=== PATIENT | female | born 1930 | race Caucasian/White ===

== ENCOUNTER 2018-11-08 11:01 | Inpatient (IN) ==
[2018-11-08 11:44] LABS: Basophils % 0.5 % (0.0-0.8); Eosinophils # 0.2 10*3/uL (0.0-0.87); Eosinophils % 1.7 % (0.00-10.9); Hematocrit 35.7 VOL% (35.7-47.0); Hemoglobin 11.4 GM/DL (12.0-16.0); Immature Granulocytes % 0.3 %; Immature Granulocytes Absolute 0.03 #; Lymphocytes # 2.1 10*3/uL (1.4-4.0); Lymphocytes % 24.2 % (21.3-54.2); Mean Corpuscular HGB Conc 31.9 GM/DL (32-36); Mean Corpuscular Volume 85.8 FL (87-102); Mean Platelet Volume 11.3 FL (9.6-12.0); Monocytes % 9.4 % (1.7-12.7); Neutrophils % 63.9 % (38.7-73.9); Platelet Count 249 T/CUMM (130-400); Red Blood Count 4.16 MC/CUMM (3.8-5.5); Red Cell Distribution Width 14.6 % (9.3-17.3); White Blood Count 8.8 T/CUMM (4-12)
[2018-11-08 11:56] LABS: INR 0.9; Partial Thromboplastin Time 22.5 SECS (20.8-36.0)
[2018-11-08 12:08] LABS: Alanine Aminotransferase 24 U/L (13-56); Albumin 3.2 G/DL (3.4-5.0); Alkaline Phosphatase 88 U/L (45-117); Aspartate Amino Transferase 39 U/L (0-37); Blood Urea Nitrogen 28 MG/DL (7-18); Calcium 8.6 MG/DL (8.5-10.1); Estimated Glom Filtration Rate 42 ML/MIN; Glucose 82 MG/DL (74-106); Osmolality,Calculated 285.3 MOS/KG (273-304); Total Protein 6.7 G/DL (6.4-8.3)
[2018-11-08 12:29] LABS: Apearance,Urine Slightly Hazy (Clear); Bilirubin,Urine Negative (Negative); Blood, Urine Negative (Negative); Glucose,Urine (UA) Negative (Negative); Ketones,Urine Negative (Negative); Nitrite,Urine Negative (Negative); Protein,Urine 30 MG/DL; Urine Color Yellow (Yellow); Urine Specific Gravity 1.019 (1.001-1.035); Urine Urobilinogen < 2.0 EU/DL (0.2-1.0)
[2018-11-08 13:03] LABS: Barbiturates Screen,Urine Negative (Negative); Benzodiazepines Screen,Urine Negative (Negative); Cannabinoid Screen,Urine Negative (Negative); Opiate Screen,Urine Negative (Negative); Phencyclidine Screen,Urine Negative (Negative)
[2018-11-08] MEDS ORDERED: INFLUENZA VIRUS VACCINE 0.5 ML SYRINGE IM ONE (16:08)
[2018-11-08] MEDS: DONEPEZIL 10 MG TABLET PO SCH (20:50)
[2018-11-08] MEDS: ROSUVASTATIN 20 MG TABLET PO SCH (20:50)
[2018-11-08] MEDS: DOXYCYCLINE HYCLATE 100 MG CAPSULE PO SCH (20:50)
[2018-11-09] MEDS ORDERED: hydrALAZINE 20 MG/1 ML VIAL IV ONE (04:28)
[2018-11-09 04:37] LABS: Basophils % 0.7 % (0.0-0.8); Eosinophils # 0.2 10*3/uL (0.0-0.87); Eosinophils % 3.4 % (0.00-10.9); Hematocrit 36.6 VOL% (35.7-47.0); Hemoglobin 11.4 GM/DL (12.0-16.0); Immature Granulocytes % 0.3 %; Immature Granulocytes Absolute 0.02 #; Lymphocytes # 1.7 10*3/uL (1.4-4.0); Lymphocytes % 28.5 % (21.3-54.2); Mean Corpuscular HGB Conc 31.1 GM/DL (32-36); Mean Corpuscular Volume 85.1 FL (87-102); Mean Platelet Volume 10.1 FL (9.6-12.0); Monocytes % 8.8 % (1.7-12.7); Neutrophils % 58.3 % (38.7-73.9); Platelet Count 210 T/CUMM (130-400); Red Cell Distribution Width 14.4 % (9.3-17.3); White Blood Count 5.9 T/CUMM (4-12)
[2018-11-09 04:54] LABS: Albumin 3.2 G/DL (3.4-5.0); Bilirubin,Total 0.4 MG/DL (0.2-1.0); Calcium 8.9 MG/DL (8.5-10.1); Osmolality,Calculated 286.1 MOS/KG (273-304); Total Protein 6.4 G/DL (6.4-8.3)
[2018-11-09] MEDS: CLOPIDOGREL 75 MG TABLET PO SCH (10:36)
[2018-11-09] MEDS: CALCIUM (CARBONATE)/VITAMIN D 250 MG-125 UNIT TABLET PO SCH (10:36)
[2018-11-09] MEDS: hydrALAZINE 25 MG TABLET PO SCH ×3 (10:36→20:56)
[2018-11-09] MEDS: SERTRALINE 100 MG TABLET PO SCH (10:36)
[2018-11-09] MEDS: DOXYCYCLINE HYCLATE 100 MG CAPSULE PO SCH ×2 (10:37→20:56)
[2018-11-09] MEDS: MULTIVITAMIN (CENTRUM) TABLET PO SCH (10:37)
[2018-11-09] MEDS: PANTOPRAZOLE 40 MG TABLET PO SCH (10:37)
[2018-11-09] MEDS: ASPIRIN EC 81 MG TABLET PO SCH (10:37)
[2018-11-09] MEDS: amLODIPine 5 MG TABLET PO SCH (10:37)
[2018-11-09] MEDS: LORATADINE 10 MG TABLET PO SCH (10:37)
[2018-11-09] MEDS: ACETAMINOPHEN 325 MG TABLET PO PRN ×2 (10:44→21:09)
[2018-11-09] MEDS: DONEPEZIL 10 MG TABLET PO SCH (20:56)
[2018-11-09] MEDS: ROSUVASTATIN 20 MG TABLET PO SCH (20:56)
[2018-11-10] MEDS: ACETAMINOPHEN 325 MG TABLET PO PRN ×2 (06:06→12:43)
[2018-11-10] MEDS: CALCIUM (CARBONATE)/VITAMIN D 250 MG-125 UNIT TABLET PO SCH (08:16)
[2018-11-10] MEDS: hydrALAZINE 25 MG TABLET PO SCH ×2 (08:16→15:09)
[2018-11-10] MEDS: CLOPIDOGREL 75 MG TABLET PO SCH (08:17)
[2018-11-10] MEDS: DOXYCYCLINE HYCLATE 100 MG CAPSULE PO SCH (08:17)
[2018-11-10] MEDS: PANTOPRAZOLE 40 MG TABLET PO SCH (08:17)
[2018-11-10] MEDS: ASPIRIN EC 81 MG TABLET PO SCH (08:17)
[2018-11-10] MEDS: MULTIVITAMIN (CENTRUM) TABLET PO SCH (08:17)
[2018-11-10] MEDS: LORATADINE 10 MG TABLET PO SCH (08:17)
[2018-11-10] MEDS: amLODIPine 5 MG TABLET PO SCH (08:17)
[2018-11-10] MEDS: SERTRALINE 100 MG TABLET PO SCH (08:17)
[2018-11-10] MEDS ORDERED: amLODIPine 5 MG TABLET PO ONE (09:48)
[2018-11-10 17:07] VITALS: BP 183/72
== END 2018-11-10 17:05 | disposition hospice, home (50) | DRG 69 ==
LOC: N.ED 11:01 → N.EDINP 14:13 → N.4E 15:13
PROVIDERS: ADMIT Internal Medicine; ATTEND Internal Medicine

== ENCOUNTER 2019-02-03 19:45 | Inpatient (IN) ==
[2019-02-03 21:08] LABS: Basophils % 0.4 % (0.0-0.8); Eosinophils # 0.2 10*3/uL (0.0-0.87); Eosinophils % 1.8 % (0.00-10.9); Hematocrit 34.9 VOL% (35.7-47.0); Hemoglobin 10.8 GM/DL (12.0-16.0); Immature Granulocytes % 0.3 %; Immature Granulocytes Absolute 0.03 #; Lymphocytes # 1.5 10*3/uL (1.4-4.0); Lymphocytes % 16.2 % (21.3-54.2); Mean Corpuscular HGB Conc 30.9 GM/DL (32-36); Mean Corpuscular Volume 80.6 FL (87-102); Mean Platelet Volume 9.7 FL (9.6-12.0); Monocytes % 10.8 % (1.7-12.7); Neutrophils % 70.5 % (38.7-73.9); Platelet Count 340 T/CUMM (130-400); Red Blood Count 4.33 MC/CUMM (3.8-5.5); Red Cell Distribution Width 17.9 % (9.3-17.3); White Blood Count 9.1 T/CUMM (4-12)
[2019-02-03 21:19] LABS: PT Patient Result 10.4 SECS (9.6-12.2); Partial Thromboplastin Time 29.8 SECS (20.8-36.0)
[2019-02-03 21:27] LABS: Alanine Aminotransferase 39 U/L (13-56); Albumin 2.8 G/DL (3.4-5.0); Alkaline Phosphatase 78 U/L (45-117); Aspartate Amino Transferase 37 U/L (0-37); Bilirubin,Total < 0.39 MG/DL (0.2-1.0); Blood Urea Nitrogen 17 MG/DL (7-18); Calcium 8.6 MG/DL (8.5-10.1); Estimated Glom Filtration Rate 68 ML/MIN; Glucose 112 MG/DL (74-106); Osmolality,Calculated 279.5 MOS/KG (273-304); Total Protein 6.6 G/DL (6.4-8.3)
[2019-02-03] MEDS ORDERED: ONDANSETRON 4 MG/2 ML VIAL IV PRN (23:53)
[2019-02-03] MEDS ORDERED: guaiFENesin/DM ER 600-30 MG TABLET PO PRN (23:53)
[2019-02-03] MEDS ORDERED: ZALEPLON 5 MG CAPSULE PO PRN (23:53)
[2019-02-03] MEDS ORDERED: DOCUSATE SODIUM 100 MG CAPSULE PO PRN (23:53)
[2019-02-04] MEDS ORDERED: FUROSEMIDE 100 MG/10 ML VIAL IV STA (00:09)
[2019-02-04] MEDS ORDERED: hydrALAZINE 20 MG/1 ML VIAL IV PRN (01:02)
[2019-02-04 01:26] LABS: Basophils % 0.5 % (0.0-0.8); Eosinophils # 0.2 10*3/uL (0.0-0.87); Hematocrit 37.8 VOL% (35.7-47.0); Hemoglobin 11.7 GM/DL (12.0-16.0); Immature Granulocytes % 0.4 %; Immature Granulocytes Absolute 0.03 #; Lymphocytes # 1.3 10*3/uL (1.4-4.0); Lymphocytes % 15.6 % (21.3-54.2); Mean Corpuscular Volume 80.3 FL (87-102); Mean Platelet Volume 9.4 FL (9.6-12.0); Monocytes % 10.7 % (1.7-12.7); Neutrophils % 70.8 % (38.7-73.9); Platelet Count 353 T/CUMM (130-400); Red Blood Count 4.71 MC/CUMM (3.8-5.5); Red Cell Distribution Width 17.9 % (9.3-17.3); White Blood Count 8.3 T/CUMM (4-12)
[2019-02-04 01:52] LABS: Bilirubin,Total 0.4 MG/DL (0.2-1.0); Calcium 8.8 MG/DL (8.5-10.1); Osmolality,Calculated 282.3 MOS/KG (273-304)
[2019-02-04] MEDS: cefTRIAXone 1,000 MG in SYRINGE 1 EACH IV SCH (02:08)
[2019-02-04] MEDS: AZITHROMYCIN INJ 500 MG in SODIUM CHLORIDE 0.9% 250 ML IV SCH (02:08)
[2019-02-04] MEDS: ALBUTEROL/IPRATROPIUM 3 ML NEB RESP TX SCH ×4 (03:41→20:00)
[2019-02-04] MEDS: FUROSEMIDE 40 MG/4 ML VIAL IV SCH (09:10)
[2019-02-04] MEDS: PANTOPRAZOLE 40 MG TABLET PO SCH (09:10)
[2019-02-04] MEDS: GABAPENTIN 100 MG CAPSULE PO SCH ×2 (17:32→21:57)
[2019-02-04] MEDS: hydrALAZINE 25 MG TABLET PO SCH ×2 (17:32→21:58)
[2019-02-04] MEDS: DONEPEZIL 10 MG TABLET PO SCH (21:57)
[2019-02-04] MEDS: ROSUVASTATIN 20 MG TABLET PO SCH (21:57)
[2019-02-04] MEDS: FERROUS SULFATE 325 MG TABLET PO SCH (21:58)
[2019-02-05] MEDS: ALBUTEROL/IPRATROPIUM 3 ML NEB RESP TX SCH ×4 (00:27→19:56)
[2019-02-05] MEDS: cefTRIAXone 1,000 MG in SYRINGE 1 EACH IV SCH (01:39)
[2019-02-05] MEDS: AZITHROMYCIN INJ 500 MG in SODIUM CHLORIDE 0.9% 250 ML IV SCH (01:40)
[2019-02-05] MEDS: LEVOTHYROXINE 75 MCG TABLET PO SCH (05:47)
[2019-02-05] MEDS: FUROSEMIDE 40 MG/4 ML VIAL IV SCH ×2 (07:41→09:11)
[2019-02-05] MEDS ORDERED: CLOPIDOGREL 75 MG TABLET PO SCH (09:00)
[2019-02-05] MEDS: FERROUS SULFATE 325 MG TABLET PO SCH ×2 (09:10→21:00)
[2019-02-05] MEDS: ASPIRIN CHEW 81 MG TABLET PO SCH (09:10)
[2019-02-05] MEDS: hydrALAZINE 25 MG TABLET PO SCH (09:10)
[2019-02-05] MEDS: SERTRALINE 100 MG TABLET PO SCH (09:11)
[2019-02-05] MEDS: PANTOPRAZOLE 40 MG TABLET PO SCH (09:11)
[2019-02-05] MEDS: dilTIAZem Drip 125 MG/125 ML PREMIX IV SCH (10:51)
[2019-02-05] MEDS ORDERED: MAGNESIUM SULF RIDER 2 GM in PREMIX 1 EACH IV ONE (12:12)
[2019-02-05] MEDS: DILTIAZEM CD 240 MG CAPSULE PO SCH (12:36)
[2019-02-05] MEDS: ASCORBIC ACID 500 MG TABLET PO SCH ×2 (12:36→21:00)
[2019-02-05] MEDS: SPIRONOLACTONE 50 MG TABLET PO SCH (12:36)
[2019-02-05] MEDS: MAGNESIUM OXIDE 400 MG TABLET PO SCH ×2 (12:36→21:00)
[2019-02-05] MEDS: GABAPENTIN 100 MG CAPSULE PO SCH ×2 (17:09→21:00)
[2019-02-05] MEDS: ROSUVASTATIN 20 MG TABLET PO SCH (21:00)
[2019-02-05] MEDS: DONEPEZIL 10 MG TABLET PO SCH (21:00)
[2019-02-05] MEDS: APIXABAN 2.5 MG TABLET PO SCH (21:00)
[2019-02-06] MEDS: ALBUTEROL/IPRATROPIUM 3 ML NEB RESP TX SCH ×4 (01:27→20:20)
[2019-02-06] MEDS: AZITHROMYCIN INJ 500 MG in SODIUM CHLORIDE 0.9% 250 ML IV SCH (01:44)
[2019-02-06] MEDS: cefTRIAXone 1,000 MG in SYRINGE 1 EACH IV SCH (01:44)
[2019-02-06] MEDS: LEVOTHYROXINE 75 MCG TABLET PO SCH (05:53)
[2019-02-06] MEDS: MAGNESIUM OXIDE 400 MG TABLET PO SCH ×2 (09:51→20:45)
[2019-02-06] MEDS: PANTOPRAZOLE 40 MG TABLET PO SCH (09:51)
[2019-02-06] MEDS: FERROUS SULFATE 325 MG TABLET PO SCH ×2 (09:52→20:44)
[2019-02-06] MEDS: SPIRONOLACTONE 50 MG TABLET PO SCH (09:52)
[2019-02-06] MEDS: ASCORBIC ACID 500 MG TABLET PO SCH ×2 (09:52→20:44)
[2019-02-06] MEDS: SERTRALINE 100 MG TABLET PO SCH (09:53)
[2019-02-06] MEDS: LOSARTAN 50 MG TABLET PO SCH (09:53)
[2019-02-06] MEDS: ASPIRIN CHEW 81 MG TABLET PO SCH (09:53)
[2019-02-06] MEDS: APIXABAN 2.5 MG TABLET PO SCH (09:54)
[2019-02-06 10:00] LABS: Troponin I 0.019 NG/ML (0.00-0.045)
[2019-02-06] MEDS: DILTIAZEM CD 240 MG CAPSULE PO SCH (10:12)
[2019-02-06 11:18] LABS: Calcium 8.6 MG/DL (8.5-10.1); Osmolality,Calculated 286.4 MOS/KG (273-304)
[2019-02-06] MEDS: dilTIAZem Drip 125 MG/125 ML PREMIX IV SCH (11:37)
[2019-02-06 12:22] LABS: Troponin I 0.018 NG/ML (0.00-0.045)
[2019-02-06] MEDS: GABAPENTIN 100 MG CAPSULE PO SCH ×2 (15:19→20:45)
[2019-02-06 16:15] LABS: Troponin I < 0.015 NG/ML (0.00-0.045)
[2019-02-06] MEDS: ACETAMINOPHEN 325 MG TABLET PO PRN (20:44)
[2019-02-06] MEDS: DONEPEZIL 10 MG TABLET PO SCH (20:45)
[2019-02-06] MEDS: ROSUVASTATIN 20 MG TABLET PO SCH (20:45)
[2019-02-07] MEDS: ALBUTEROL/IPRATROPIUM 3 ML NEB RESP TX SCH ×4 (00:58→19:15)
[2019-02-07] MEDS: cefTRIAXone 1,000 MG in SYRINGE 1 EACH IV SCH (01:22)
[2019-02-07] MEDS: AZITHROMYCIN INJ 500 MG in SODIUM CHLORIDE 0.9% 250 ML IV SCH (01:26)
[2019-02-07 04:48] LABS: Basophils % 0.4 % (0.0-0.8); Eosinophils # 0.3 10*3/uL (0.0-0.87); Eosinophils % 2.6 % (0.00-10.9); Hematocrit 33.7 VOL% (35.7-47.0); Immature Granulocytes % 0.3 %; Immature Granulocytes Absolute 0.03 #; Lymphocytes # 1.5 10*3/uL (1.4-4.0); Lymphocytes % 14.8 % (21.3-54.2); Mean Corpuscular HGB Conc 29.7 GM/DL (32-36); Mean Corpuscular Volume 82.4 FL (87-102); Monocytes % 11.3 % (1.7-12.7); Neutrophils % 70.6 % (38.7-73.9); Platelet Count 417 T/CUMM (130-400); Red Blood Count 4.09 MC/CUMM (3.8-5.5); Red Cell Distribution Width 18.5 % (9.3-17.3); White Blood Count 10.3 T/CUMM (4-12)
[2019-02-07 05:23] LABS: Calcium 8.4 MG/DL (8.5-10.1); Osmolality,Calculated 285.3 MOS/KG (273-304); Thyroid Stimulating Hormone 2.68 uIU/ml (0.358-3.74)
[2019-02-07] MEDS: LEVOTHYROXINE 75 MCG TABLET PO SCH (06:06)
[2019-02-07] MEDS: MAGNESIUM OXIDE 400 MG TABLET PO SCH ×2 (08:58→20:23)
[2019-02-07] MEDS: ASPIRIN CHEW 81 MG TABLET PO SCH (08:58)
[2019-02-07] MEDS: SPIRONOLACTONE 50 MG TABLET PO SCH (08:58)
[2019-02-07] MEDS: SERTRALINE 100 MG TABLET PO SCH (08:58)
[2019-02-07] MEDS: FERROUS SULFATE 325 MG TABLET PO SCH ×2 (08:59→20:22)
[2019-02-07] MEDS: DILTIAZEM CD 240 MG CAPSULE PO SCH (08:59)
[2019-02-07] MEDS: PANTOPRAZOLE 40 MG TABLET PO SCH (08:59)
[2019-02-07] MEDS: ASCORBIC ACID 500 MG TABLET PO SCH ×2 (09:00→20:22)
[2019-02-07] MEDS: LOSARTAN 50 MG TABLET PO SCH (09:00)
[2019-02-07] MEDS: dilTIAZem Drip 125 MG/125 ML PREMIX IV SCH (12:21)
[2019-02-07] MEDS: GABAPENTIN 100 MG CAPSULE PO SCH ×2 (16:50→20:23)
[2019-02-07] MEDS: ROSUVASTATIN 20 MG TABLET PO SCH (20:23)
[2019-02-07] MEDS: DONEPEZIL 10 MG TABLET PO SCH (20:23)
[2019-02-08] MEDS: cefTRIAXone 1,000 MG in SYRINGE 1 EACH IV SCH (00:40)
[2019-02-08] MEDS: ALBUTEROL/IPRATROPIUM 3 ML NEB RESP TX SCH ×4 (00:59→19:31)
[2019-02-08] MEDS: LEVOTHYROXINE 75 MCG TABLET PO SCH (05:42)
[2019-02-08 06:34] LABS: Basophils # 0.1 10*3/uL (0.0-0.2); Basophils % 0.5 % (0.0-0.8); Eosinophils # 0.3 10*3/uL (0.0-0.87); Eosinophils % 2.8 % (0.00-10.9); Hematocrit 37.8 VOL% (35.7-47.0); Hemoglobin 11.4 GM/DL (12.0-16.0); Immature Granulocytes % 0.4 %; Immature Granulocytes Absolute 0.04 #; Lymphocytes # 1.3 10*3/uL (1.4-4.0); Lymphocytes % 11.9 % (21.3-54.2); Mean Corpuscular HGB Conc 30.2 GM/DL (32-36); Mean Corpuscular Volume 81.3 FL (87-102); Mean Platelet Volume 9.6 FL (9.6-12.0); Monocytes % 9.4 % (1.7-12.7); Platelet Count 483 T/CUMM (130-400); Red Blood Count 4.65 MC/CUMM (3.8-5.5); Red Cell Distribution Width 18.6 % (9.3-17.3); White Blood Count 10.6 T/CUMM (4-12)
[2019-02-08 07:04] LABS: % Iron Saturation 7.4 % (18-50); Ferritin 92.1 ng/ml (8-252)
[2019-02-08] MEDS: DILTIAZEM CD 240 MG CAPSULE PO SCH (09:38)
[2019-02-08] MEDS: LOSARTAN 50 MG TABLET PO SCH (09:38)
[2019-02-08] MEDS: MAGNESIUM OXIDE 400 MG TABLET PO SCH ×2 (09:38→21:00)
[2019-02-08] MEDS: ASPIRIN CHEW 81 MG TABLET PO SCH (09:38)
[2019-02-08] MEDS: ASCORBIC ACID 500 MG TABLET PO SCH ×2 (09:38→21:00)
[2019-02-08] MEDS: FERROUS SULFATE 325 MG TABLET PO SCH ×2 (09:39→21:00)
[2019-02-08] MEDS: SERTRALINE 100 MG TABLET PO SCH (09:39)
[2019-02-08] MEDS: SPIRONOLACTONE 50 MG TABLET PO SCH (09:39)
[2019-02-08] MEDS: PANTOPRAZOLE 40 MG TABLET PO SCH (09:39)
[2019-02-08] MEDS ORDERED: dilTIAZem Drip 125 MG/125 ML PREMIX IV SCH (12:40)
[2019-02-08] MEDS ORDERED: FUROSEMIDE 40 MG/4 ML VIAL IV ONE (13:47)
[2019-02-08] MEDS: METOPROLOL SUCCINATE XL 50 MG TABLET PO SCH (14:45)
[2019-02-08] MEDS: GABAPENTIN 100 MG CAPSULE PO SCH ×2 (15:48→21:00)
[2019-02-08] MEDS: ROSUVASTATIN 20 MG TABLET PO SCH (21:00)
[2019-02-08] MEDS: DONEPEZIL 10 MG TABLET PO SCH (21:00)
[2019-02-09] MEDS: ALBUTEROL/IPRATROPIUM 3 ML NEB RESP TX SCH ×4 (00:28→19:01)
[2019-02-09 03:18] LABS: Calcium 8.8 MG/DL (8.5-10.1)
[2019-02-09] MEDS: cefTRIAXone 1,000 MG in SYRINGE 1 EACH IV SCH (03:45)
[2019-02-09] MEDS: LEVOTHYROXINE 75 MCG TABLET PO SCH (06:32)
[2019-02-09] MEDS: SPIRONOLACTONE 50 MG TABLET PO SCH (08:39)
[2019-02-09] MEDS: FUROSEMIDE 40 MG/4 ML VIAL IV SCH (08:39)
[2019-02-09] MEDS: LOSARTAN 50 MG TABLET PO SCH (08:39)
[2019-02-09] MEDS: MAGNESIUM OXIDE 400 MG TABLET PO SCH ×2 (08:39→21:47)
[2019-02-09] MEDS: ASCORBIC ACID 500 MG TABLET PO SCH ×2 (08:40→21:47)
[2019-02-09] MEDS: METOPROLOL SUCCINATE XL 50 MG TABLET PO SCH (08:40)
[2019-02-09] MEDS: PANTOPRAZOLE 40 MG TABLET PO SCH (08:40)
[2019-02-09] MEDS: FERROUS SULFATE 325 MG TABLET PO SCH ×2 (08:40→21:47)
[2019-02-09] MEDS: ASPIRIN CHEW 81 MG TABLET PO SCH (08:40)
[2019-02-09] MEDS: SERTRALINE 100 MG TABLET PO SCH (08:40)
[2019-02-09] MEDS: DILTIAZEM CD 240 MG CAPSULE PO SCH (08:44)
[2019-02-09] MEDS: GABAPENTIN 100 MG CAPSULE PO SCH ×2 (15:25→21:47)
[2019-02-09] MEDS: DONEPEZIL 10 MG TABLET PO SCH (21:46)
[2019-02-09] MEDS: ROSUVASTATIN 20 MG TABLET PO SCH (21:47)
[2019-02-10] MEDS: ALBUTEROL/IPRATROPIUM 3 ML NEB RESP TX SCH ×4 (00:35→20:19)
[2019-02-10] MEDS: cefTRIAXone 1,000 MG in SYRINGE 1 EACH IV SCH (02:44)
[2019-02-10 04:47] LABS: Basophils # 0.1 10*3/uL (0.0-0.2); Basophils % 0.5 % (0.0-0.8); Eosinophils # 0.3 10*3/uL (0.0-0.87); Hematocrit 32.9 VOL% (35.7-47.0); Hemoglobin 10.2 GM/DL (12.0-16.0); Immature Granulocytes % 0.3 %; Immature Granulocytes Absolute 0.03 #; Lymphocytes # 1.8 10*3/uL (1.4-4.0); Lymphocytes % 18.7 % (21.3-54.2); Mean Corpuscular Volume 78.5 FL (87-102); Mean Platelet Volume 10.1 FL (9.6-12.0); Monocytes % 11.1 % (1.7-12.7); Neutrophils % 66.4 % (38.7-73.9); Platelet Count 443 T/CUMM (130-400); Red Blood Count 4.19 MC/CUMM (3.8-5.5); Red Cell Distribution Width 18.5 % (9.3-17.3); White Blood Count 9.4 T/CUMM (4-12)
[2019-02-10 05:23] LABS: Calcium 8.9 MG/DL (8.5-10.1); Osmolality,Calculated 285.4 MOS/KG (273-304)
[2019-02-10] MEDS: LEVOTHYROXINE 75 MCG TABLET PO SCH (06:05)
[2019-02-10 07:46] LABS: Albumin 2.4 G/DL (3.4-5.0); Total Protein 5.5 G/DL (6.4-8.3)
[2019-02-10] MEDS ORDERED: diphenhydrAMINE 2% CREAM 28 GM TUBE TOP PRN (09:32)
[2019-02-10 12:03] LABS: Total Protein,Body Fluid 3.8 G/DL
[2019-02-10] MEDS: PANTOPRAZOLE 40 MG TABLET PO SCH (12:46)
[2019-02-10] MEDS: MAGNESIUM OXIDE 400 MG TABLET PO SCH ×2 (12:46→21:40)
[2019-02-10] MEDS: FERROUS SULFATE 325 MG TABLET PO SCH ×2 (12:46→21:39)
[2019-02-10] MEDS: LOSARTAN 50 MG TABLET PO SCH (12:46)
[2019-02-10] MEDS: SPIRONOLACTONE 50 MG TABLET PO SCH (12:46)
[2019-02-10] MEDS: ASCORBIC ACID 500 MG TABLET PO SCH ×2 (12:46→21:39)
[2019-02-10] MEDS: METOPROLOL SUCCINATE XL 50 MG TABLET PO SCH (12:46)
[2019-02-10] MEDS: DILTIAZEM CD 240 MG CAPSULE PO SCH (12:46)
[2019-02-10] MEDS: ASPIRIN CHEW 81 MG TABLET PO SCH (12:46)
[2019-02-10] MEDS: FUROSEMIDE 40 MG/4 ML VIAL IV SCH (12:47)
[2019-02-10] MEDS: SERTRALINE 100 MG TABLET PO SCH (12:47)
[2019-02-10 13:05] LABS: Lymphocytes,Pleural Fluid 55 %; Monocytes,Pleural Fluid 5 %; Neutrophils,Pleural Fluid 40 %; RBC,Pleural Fluid 4809 T/CUMM
[2019-02-10] MEDS: GABAPENTIN 100 MG CAPSULE PO SCH ×2 (16:27→21:39)
[2019-02-10] MEDS: ROSUVASTATIN 20 MG TABLET PO SCH (21:39)
[2019-02-10] MEDS: DONEPEZIL 10 MG TABLET PO SCH (21:40)
[2019-02-11] MEDS: ALBUTEROL/IPRATROPIUM 3 ML NEB RESP TX SCH ×4 (01:17→21:42)
[2019-02-11] MEDS: cefTRIAXone 1,000 MG in SYRINGE 1 EACH IV SCH (02:30)
[2019-02-11] MEDS: LEVOTHYROXINE 75 MCG TABLET PO SCH (06:17)
[2019-02-11 06:38] LABS: Basophils % 0.5 % (0.0-0.8); Eosinophils # 0.3 10*3/uL (0.0-0.87); Eosinophils % 3.3 % (0.00-10.9); Hemoglobin 9.7 GM/DL (12.0-16.0); Immature Granulocytes % 0.4 %; Immature Granulocytes Absolute 0.03 #; Lymphocytes # 1.6 10*3/uL (1.4-4.0); Lymphocytes % 18.5 % (21.3-54.2); Mean Corpuscular HGB Conc 30.3 GM/DL (32-36); Mean Corpuscular Volume 79.8 FL (87-102); Monocytes % 10.8 % (1.7-12.7); Neutrophils % 66.5 % (38.7-73.9); Platelet Count 472 T/CUMM (130-400); Red Blood Count 4.01 MC/CUMM (3.8-5.5); Red Cell Distribution Width 18.8 % (9.3-17.3); White Blood Count 8.6 T/CUMM (4-12)
[2019-02-11 07:13] LABS: Calcium 8.4 MG/DL (8.5-10.1); Osmolality,Calculated 279.7 MOS/KG (273-304)
[2019-02-11] MEDS: SPIRONOLACTONE 50 MG TABLET PO SCH (08:12)
[2019-02-11] MEDS: DILTIAZEM CD 240 MG CAPSULE PO SCH (08:12)
[2019-02-11] MEDS: ASPIRIN CHEW 81 MG TABLET PO SCH (08:13)
[2019-02-11] MEDS: SERTRALINE 100 MG TABLET PO SCH (08:13)
[2019-02-11] MEDS: LOSARTAN 50 MG TABLET PO SCH (08:13)
[2019-02-11] MEDS: FERROUS SULFATE 325 MG TABLET PO SCH ×2 (08:13→21:09)
[2019-02-11] MEDS: ASCORBIC ACID 500 MG TABLET PO SCH ×2 (08:13→21:09)
[2019-02-11] MEDS: PANTOPRAZOLE 40 MG TABLET PO SCH (08:13)
[2019-02-11] MEDS: MAGNESIUM OXIDE 400 MG TABLET PO SCH ×2 (08:14→21:09)
[2019-02-11] MEDS: METOPROLOL SUCCINATE XL 50 MG TABLET PO SCH (08:14)
[2019-02-11] MEDS ORDERED: ALBUTEROL 2.5 MG/3 ML NEB RESP TX PRN (10:36)
[2019-02-11] MEDS: GABAPENTIN 100 MG CAPSULE PO SCH ×2 (16:44→21:09)
[2019-02-11] MEDS: PIPERACILLIN/TAZOBACTAM 3,375 MG in SODIUM CHLORIDE 0.9% 100 ML IV SCH (17:07)
[2019-02-11] MEDS: ROSUVASTATIN 20 MG TABLET PO SCH (21:09)
[2019-02-11] MEDS: DONEPEZIL 10 MG TABLET PO SCH (21:09)
[2019-02-11] MEDS: APIXABAN 2.5 MG TABLET PO SCH (21:09)
[2019-02-11] MEDS: AZITHROMYCIN INJ 500 MG in SODIUM CHLORIDE 0.9% 250 ML IV SCH (21:11)
[2019-02-11] MEDS ORDERED: VANCOMYCIN INJ 1,000 MG in SODIUM CHLORIDE 0.9% 250 ML IV SCH (22:00)
[2019-02-12] MEDS: ALBUTEROL/IPRATROPIUM 3 ML NEB RESP TX SCH ×4 (00:35→19:45)
[2019-02-12] MEDS: ACETYLCYSTEINE 20% 800 MG/4 ML VIAL RESP TX SCH ×3 (00:35→13:05)
[2019-02-12] MEDS: PIPERACILLIN/TAZOBACTAM 3,375 MG in SODIUM CHLORIDE 0.9% 100 ML IV SCH ×3 (01:43→16:11)
[2019-02-12] MEDS: LEVOTHYROXINE 75 MCG TABLET PO SCH (06:16)
[2019-02-12] MEDS: DILTIAZEM CD 240 MG CAPSULE PO SCH (09:17)
[2019-02-12] MEDS: SPIRONOLACTONE 50 MG TABLET PO SCH (09:17)
[2019-02-12] MEDS: MAGNESIUM OXIDE 400 MG TABLET PO SCH ×2 (09:17→21:45)
[2019-02-12] MEDS: METOPROLOL SUCCINATE XL 50 MG TABLET PO SCH (09:17)
[2019-02-12] MEDS: SERTRALINE 100 MG TABLET PO SCH (09:18)
[2019-02-12] MEDS: APIXABAN 2.5 MG TABLET PO SCH ×2 (09:18→21:45)
[2019-02-12] MEDS: ASPIRIN CHEW 81 MG TABLET PO SCH (09:18)
[2019-02-12] MEDS: PANTOPRAZOLE 40 MG TABLET PO SCH (09:18)
[2019-02-12] MEDS: FERROUS SULFATE 325 MG TABLET PO SCH ×2 (09:18→21:45)
[2019-02-12] MEDS: LOSARTAN 50 MG TABLET PO SCH (09:18)
[2019-02-12] MEDS: ASCORBIC ACID 500 MG TABLET PO SCH ×2 (09:18→21:45)
[2019-02-12] MEDS: GABAPENTIN 100 MG CAPSULE PO SCH ×2 (16:08→21:46)
[2019-02-12] MEDS: ACETAMINOPHEN 325 MG TABLET PO PRN (21:45)
[2019-02-12] MEDS: ROSUVASTATIN 20 MG TABLET PO SCH (21:45)
[2019-02-12] MEDS: DONEPEZIL 10 MG TABLET PO SCH (21:45)
[2019-02-12] MEDS: AZITHROMYCIN INJ 500 MG in SODIUM CHLORIDE 0.9% 250 ML IV SCH (21:46)
[2019-02-13] MEDS: ALBUTEROL/IPRATROPIUM 3 ML NEB RESP TX SCH ×4 (00:50→18:44)
[2019-02-13] MEDS: ACETYLCYSTEINE 20% 800 MG/4 ML VIAL RESP TX SCH ×4 (00:50→18:44)
[2019-02-13] MEDS: PIPERACILLIN/TAZOBACTAM 3,375 MG in SODIUM CHLORIDE 0.9% 100 ML IV SCH ×3 (01:59→16:58)
[2019-02-13] MEDS: LEVOTHYROXINE 75 MCG TABLET PO SCH (06:43)
[2019-02-13] MEDS: MAGNESIUM OXIDE 400 MG TABLET PO SCH ×2 (08:22→20:12)
[2019-02-13] MEDS: SERTRALINE 100 MG TABLET PO SCH (08:22)
[2019-02-13] MEDS: LOSARTAN 50 MG TABLET PO SCH (08:22)
[2019-02-13] MEDS: APIXABAN 2.5 MG TABLET PO SCH ×2 (08:22→20:12)
[2019-02-13] MEDS: SPIRONOLACTONE 50 MG TABLET PO SCH (08:22)
[2019-02-13] MEDS: ASCORBIC ACID 500 MG TABLET PO SCH ×2 (08:22→20:11)
[2019-02-13] MEDS: PANTOPRAZOLE 40 MG TABLET PO SCH (08:22)
[2019-02-13] MEDS: METOPROLOL SUCCINATE XL 25 MG TABLET PO SCH (08:23)
[2019-02-13] MEDS: ASPIRIN CHEW 81 MG TABLET PO SCH (08:23)
[2019-02-13] MEDS: FERROUS SULFATE 325 MG TABLET PO SCH ×2 (08:23→20:10)
[2019-02-13] MEDS: DILTIAZEM CD 240 MG CAPSULE PO SCH (08:23)
[2019-02-13] MEDS ORDERED: METOPROLOL SUCCINATE XL 25 MG TABLET PO SCH (09:00)
[2019-02-13] MEDS: GABAPENTIN 100 MG CAPSULE PO SCH ×2 (16:58→20:10)
[2019-02-13] MEDS: DONEPEZIL 10 MG TABLET PO SCH (20:10)
[2019-02-13] MEDS: ACETAMINOPHEN 325 MG TABLET PO PRN (20:10)
[2019-02-13] MEDS: ROSUVASTATIN 20 MG TABLET PO SCH (20:10)
[2019-02-13] MEDS: AZITHROMYCIN INJ 500 MG in SODIUM CHLORIDE 0.9% 250 ML IV SCH (20:12)
[2019-02-14] MEDS: ALBUTEROL/IPRATROPIUM 3 ML NEB RESP TX SCH ×4 (01:10→18:53)
[2019-02-14] MEDS: PIPERACILLIN/TAZOBACTAM 3,375 MG in SODIUM CHLORIDE 0.9% 100 ML IV SCH ×3 (02:00→17:57)
[2019-02-14 04:46] LABS: Basophils # 0.1 10*3/uL (0.0-0.2); Basophils % 0.6 % (0.0-0.8); Eosinophils # 0.3 10*3/uL (0.0-0.87); Eosinophils % 4.2 % (0.00-10.9); Hematocrit 36.3 VOL% (35.7-47.0); Hemoglobin 10.9 GM/DL (12.0-16.0); Immature Granulocytes % 0.4 %; Immature Granulocytes Absolute 0.03 #; Lymphocytes # 1.7 10*3/uL (1.4-4.0); Lymphocytes % 21.2 % (21.3-54.2); Mean Platelet Volume 9.9 FL (9.6-12.0); Neutrophils % 62.6 % (38.7-73.9); Platelet Count 450 T/CUMM (130-400); Red Blood Count 4.48 MC/CUMM (3.8-5.5); Red Cell Distribution Width 18.6 % (9.3-17.3); White Blood Count 8.1 T/CUMM (4-12)
[2019-02-14 05:13] LABS: Osmolality,Calculated 281.7 MOS/KG (273-304)
[2019-02-14] MEDS: LEVOTHYROXINE 75 MCG TABLET PO SCH (05:33)
[2019-02-14] MEDS: ACETYLCYSTEINE 20% 800 MG/4 ML VIAL RESP TX SCH (07:39)
[2019-02-14] MEDS: LOSARTAN 50 MG TABLET PO SCH (08:51)
[2019-02-14] MEDS: ASPIRIN CHEW 81 MG TABLET PO SCH (08:53)
[2019-02-14] MEDS: FERROUS SULFATE 325 MG TABLET PO SCH ×2 (08:54→21:13)
[2019-02-14] MEDS: MAGNESIUM OXIDE 400 MG TABLET PO SCH ×2 (08:54→21:13)
[2019-02-14] MEDS: PANTOPRAZOLE 40 MG TABLET PO SCH (08:54)
[2019-02-14] MEDS: DILTIAZEM CD 240 MG CAPSULE PO SCH (08:54)
[2019-02-14] MEDS: ASCORBIC ACID 500 MG TABLET PO SCH ×2 (08:54→21:13)
[2019-02-14] MEDS: APIXABAN 2.5 MG TABLET PO SCH ×2 (08:54→21:13)
[2019-02-14] MEDS: METOPROLOL SUCCINATE XL 25 MG TABLET PO SCH (08:54)
[2019-02-14] MEDS: SERTRALINE 100 MG TABLET PO SCH (08:54)
[2019-02-14] MEDS: SPIRONOLACTONE 50 MG TABLET PO SCH (08:55)
[2019-02-14] MEDS: ACETAMINOPHEN 325 MG TABLET PO PRN ×2 (15:01→21:13)
[2019-02-14] MEDS: GABAPENTIN 100 MG CAPSULE PO SCH ×2 (15:01→21:13)
[2019-02-14] MEDS: ROSUVASTATIN 20 MG TABLET PO SCH (21:13)
[2019-02-14] MEDS: DONEPEZIL 10 MG TABLET PO SCH (21:13)
[2019-02-15] MEDS: ALBUTEROL/IPRATROPIUM 3 ML NEB RESP TX SCH ×2 (00:38→07:08)
[2019-02-15] MEDS: PIPERACILLIN/TAZOBACTAM 3,375 MG in SODIUM CHLORIDE 0.9% 100 ML IV SCH ×2 (02:11→09:38)
[2019-02-15] MEDS: LEVOTHYROXINE 75 MCG TABLET PO SCH (05:49)
[2019-02-15 09:18] VITALS: BP 130/65
[2019-02-15] MEDS: MAGNESIUM OXIDE 400 MG TABLET PO SCH (09:37)
[2019-02-15] MEDS: APIXABAN 2.5 MG TABLET PO SCH (09:37)
[2019-02-15] MEDS: SERTRALINE 100 MG TABLET PO SCH (09:37)
[2019-02-15] MEDS: LOSARTAN 50 MG TABLET PO SCH (09:37)
[2019-02-15] MEDS: ASCORBIC ACID 500 MG TABLET PO SCH (09:37)
[2019-02-15] MEDS: SPIRONOLACTONE 50 MG TABLET PO SCH (09:37)
[2019-02-15] MEDS: FERROUS SULFATE 325 MG TABLET PO SCH (09:37)
[2019-02-15] MEDS: DILTIAZEM CD 240 MG CAPSULE PO SCH (09:37)
[2019-02-15] MEDS: PANTOPRAZOLE 40 MG TABLET PO SCH (09:37)
[2019-02-15] MEDS: METOPROLOL SUCCINATE XL 25 MG TABLET PO SCH (09:37)
[2019-02-15] MEDS: ASPIRIN CHEW 81 MG TABLET PO SCH (09:37)
[2019-02-15 18:11] LABS: CDT Result Negative (Negative); CDT Specimen Source STOOL
== END 2019-02-15 11:41 | DRG 177 ==
LOC: EDUNIT# → EDBD → N.ED 19:45 → N.EDINP 02-04 00:01 → SUATTDRO 02-04 00:01 → N.TELEN 02-04 00:24
PROVIDERS: ADMIT Internal Medicine; ATTEND Internal Medicine

== ENCOUNTER 2021-10-08 04:00 | Inpatient (IN) ==
[2021-10-08] MEDS ORDERED: ONDANSETRON 4 MG/2 ML VIAL IV STA (04:55)
[2021-10-08] MEDS ORDERED: MORPHINE 2 MG/1 ML SYRINGE IV STA (04:55)
[2021-10-08] MEDS ORDERED: ONDANSETRON 4 MG/2 ML VIAL ONE ×2 (04:56→08:55)
[2021-10-08] MEDS ORDERED: MORPHINE 2 MG/1 ML SYRINGE ONE (04:56)
[2021-10-08 05:06] LABS: Basophils % 0.3 % (0.0-0.8); Eosinophils # 0.1 10*3/uL (0.0-0.87); Eosinophils % 0.7 % (0.00-10.9); Hematocrit 39.2 VOL% (35.7-47.0); Hemoglobin 12.5 GM/DL (12.0-16.0); Immature Granulocytes % 1.9 %; Immature Granulocytes Absolute 0.31 #; Lymphocytes # 2.2 10*3/uL (1.4-4.0); Lymphocytes % 13.8 % (21.3-54.2); Mean Corpuscular HGB Conc 31.9 GM/DL (32-36); Monocytes # 1.1 10*3/uL (0.11-0.8); Monocytes % 6.6 % (1.7-12.7); Neutrophils % 76.7 % (38.7-73.9); Platelet Count 250 T/CUMM (130-400); Red Blood Count 4.17 MC/CUMM (3.8-5.5); Red Cell Distribution Width 12.6 % (9.3-17.3)
[2021-10-08 05:15] LABS: PT Patient Result 10.7 SECS (10.1-12.1); Partial Thromboplastin Time 25.3 SECS (23.7-32.9)
[2021-10-08 05:24] LABS: Albumin 3.8 G/DL (3.4-5.0); Bilirubin,Total 0.4 MG/DL (0.20-1.00); Calcium 9.9 MG/DL (8.5-10.1); Osmolality,Calculated 300.3 MOS/KG (273-304); Potassium 4.9 MMOL/L (3.5-5.1); Total Protein 7.1 G/DL (6.4-8.2)
[2021-10-08] MEDS ORDERED: ONDANSETRON 4 MG/2 ML VIAL IV PRN (05:24)
[2021-10-08] MEDS ORDERED: ACETAMINOPHEN 325 MG TABLET PO PRN (05:24)
[2021-10-08] MEDS ORDERED: hydrALAZINE 20 MG/1 ML VIAL IV PRN (05:24)
[2021-10-08] MEDS ORDERED: GLUCAGON 1 MG VIAL IM PRN (05:24)
[2021-10-08] MEDS ORDERED: SODIUM CHLORIDE 0.9% 1,000 ML IV STA (05:28)
[2021-10-08] MEDS ORDERED: DEXTROSE 10% 250 ML BAG IV PRN (05:32)
[2021-10-08] MEDS: HYDROmorphone 1 MG/1 ML SYRINGE IV PRN ×3 (05:47→21:10)
[2021-10-08] MEDS ORDERED: LACTATED RINGERS 1,000 ML IV SCH (06:00)
[2021-10-08 06:27] LABS: Amorphous Crystals,Urine Occasional /HPF (Few); Bilirubin,Urine Negative (Negative); Blood, Urine Negative (Negative); Glucose,Urine (UA) Negative (Negative); Hyaline Casts,Urine 1 /LPF (0-3); Ketones,Urine Negative (Negative); Mucus,Urine Occasional /LPF (Occasional); Nitrite,Urine Negative (Negative); Protein,Urine Negative (Negative); Urine Appearance Clear (Clear); Urine Color Yellow (Yellow); Urine Specific Gravity 1.015 (1.001-1.035); Urine Urobilinogen 0.2 eU/dL (<2.0); Urine pH 5.5 (4.5-8.0)
[2021-10-08] MEDS ORDERED: propofoL 200 MG/20 ML VIAL IV ONE (08:55)
[2021-10-08] MEDS ORDERED: ETOMIDATE 40 MG/20 ML VIAL IV ONE (08:55)
[2021-10-08] MEDS ORDERED: fentaNYL 100 MCG/2 ML VIAL ONE (08:55)
[2021-10-08] MEDS ORDERED: LIDOCAINE 2% 5 ML VIAL ONE (08:55)
[2021-10-08] MEDS ORDERED: SEVOFLURANE 1 UNIT/15 MINUTE INH ONE ×2 (08:55→11:15)
[2021-10-08] MEDS ORDERED: ROCURONIUM 50 MG/5 ML VIAL IV ONE (08:55)
[2021-10-08] MEDS ORDERED: ceFAZolin 2,000 MG/50 ML DUPLEX IV ONE (09:00)
[2021-10-08] MEDS ORDERED: ePHEDrine 50 MG/ML VIAL ONE (09:33)
[2021-10-08] MEDS ORDERED: ceFAZolin 1,000 MG VIAL ONE (09:55)
[2021-10-08] MEDS ORDERED: PHENYLEPHRINE 1 MG/10 ML SYRINGE IV ONE (10:10)
[2021-10-08] MEDS ORDERED: PHENYLEPHRINE 10 MG/1 ML VIAL IV ONE (10:10)
[2021-10-08] MEDS ORDERED: SODIUM CHLORIDE 0.9% 100 ML IV ONE (10:10)
[2021-10-08] MEDS ORDERED: GLYCOPYRROLATE 0.4 MG/2 ML VIAL ONE (10:45)
[2021-10-08] MEDS ORDERED: NEOSTIGMINE 10 MG/10 ML VIAL ONE (10:45)
[2021-10-08] MEDS ORDERED: MAGNESIUM HYDROXIDE SUSP 30 ML UDCUP PO PRN (11:00)
[2021-10-08] MEDS ORDERED: BISACODYL 10 MG SUPP RECTAL PRN (11:01)
[2021-10-08] MEDS ORDERED: LACTULOSE 20 GM/30 ML UDCUP PO PRN (11:01)
[2021-10-08] MEDS ORDERED: diphenhydrAMINE CAP 25 MG CAPSULE PO PRN (11:01)
[2021-10-08] MEDS ORDERED: NON-FORMULARY MEDICATION (Menthol [Biofreeze (Menthol)] 4 % Gel) TOP PRN (11:03)
[2021-10-08] MEDS ORDERED: ALBUTEROL 0.63 MG/3 ML NEB RESP TX PRN (11:03)
[2021-10-08] MEDS ORDERED: LOPERAMIDE 2 MG CAPSULE PO PRN (11:03)
[2021-10-08] MEDS ORDERED: SODIUM CHLORIDE 0.9% 1,000 ML IV SCH (14:30)
[2021-10-08] MEDS ORDERED: hydrALAZINE 25 MG TABLET PO SCH (15:00)
[2021-10-08] MEDS: PANTOPRAZOLE 40 MG TABLET PO SCH (16:02)
[2021-10-08] MEDS: ceFAZolin 2,000 MG/50 ML DUPLEX IV SCH ×2 (16:20→23:27)
[2021-10-08] MEDS: FERROUS SULFATE 325 MG TABLET PO SCH (16:20)
[2021-10-08] MEDS: GABAPENTIN 100 MG CAPSULE PO SCH ×2 (16:20→21:07)
[2021-10-08] MEDS: DONEPEZIL 10 MG TABLET PO SCH (21:07)
[2021-10-08] MEDS: DOCUSATE SODIUM 100 MG CAPSULE PO SCH (21:07)
[2021-10-08] MEDS: ROSUVASTATIN 20 MG TABLET PO SCH (21:07)
[2021-10-08] MEDS: APIXABAN 2.5 MG TABLET PO SCH (21:07)
[2021-10-08] MEDS: ASCORBIC ACID 500 MG TABLET PO SCH (21:07)
[2021-10-08] MEDS: OLOPATADINE 0.1% OPH SOLN 5 ML BOTTLE BOTH EYES SCH (21:30)
[2021-10-09 04:59] LABS: Basophils % 0.3 % (0.0-0.8); Eosinophils # 0.1 10*3/uL (0.0-0.87); Eosinophils % 0.3 % (0.00-10.9); Hematocrit 30.4 VOL% (35.7-47.0); Hemoglobin 9.5 GM/DL (12.0-16.0); Immature Granulocytes % 0.5 %; Immature Granulocytes Absolute 0.08 #; Lymphocytes # 0.9 10*3/uL (1.4-4.0); Lymphocytes % 5.6 % (21.3-54.2); Mean Corpuscular HGB Conc 31.3 GM/DL (32-36); Mean Corpuscular Volume 96.8 FL (87-102); Mean Platelet Volume 11.5 FL (9.6-12.0); Monocytes % 12.6 % (1.7-12.7); Neutrophils % 80.7 % (38.7-73.9); Platelet Count 199 T/CUMM (130-400); Red Blood Count 3.14 MC/CUMM (3.8-5.5); Red Cell Distribution Width 13.1 % (9.3-17.3); White Blood Count 15.7 T/CUMM (4-12)
[2021-10-09 05:17] LABS: Calcium 8.2 MG/DL (8.5-10.1); Osmolality,Calculated 291.5 MOS/KG (273-304); Potassium 5.8 MMOL/L (3.5-5.1)
[2021-10-09 05:25] LABS: Band Neutrophils 1 % (0-10); Lymphocytes 7 % (20-55); Platelet Estimate Adequate; Total Cells Counted 100
[2021-10-09] MEDS: LEVOTHYROXINE 75 MCG TABLET PO SCH (05:41)
[2021-10-09] MEDS ORDERED: LOSARTAN 50 MG TABLET PO SCH (09:00)
[2021-10-09] MEDS ORDERED: SPIRONOLACTONE 50 MG TABLET PO SCH (09:00)
[2021-10-09] MEDS ORDERED: amLODIPine 10 MG TABLET PO SCH (09:00)
[2021-10-09] MEDS ORDERED: SODIUM POLYSTYRENE SULFATE 15 GM/60 ML BOTTLE PO STA (09:07)
[2021-10-09] MEDS: MULTIVITAMIN (CENTRUM) TABLET PO SCH (09:19)
[2021-10-09] MEDS: METOPROLOL SUCCINATE XL 25 MG TABLET PO SCH (09:19)
[2021-10-09] MEDS: LORATADINE 10 MG TABLET PO SCH (09:19)
[2021-10-09] MEDS: CALCIUM (CARBONATE)/VITAMIN D 600 MG-400 UNIT TABLET PO SCH (09:19)
[2021-10-09] MEDS: ASCORBIC ACID 500 MG TABLET PO SCH ×2 (09:20→21:52)
[2021-10-09] MEDS: FERROUS SULFATE 325 MG TABLET PO SCH ×2 (09:20→16:05)
[2021-10-09] MEDS: PANTOPRAZOLE 40 MG TABLET PO SCH (09:20)
[2021-10-09] MEDS: ASPIRIN CHEW 81 MG TABLET PO SCH (09:20)
[2021-10-09] MEDS: SERTRALINE 50 MG TABLET PO SCH (09:20)
[2021-10-09] MEDS: DOCUSATE SODIUM 100 MG CAPSULE PO SCH ×2 (09:20→21:53)
[2021-10-09] MEDS: APIXABAN 2.5 MG TABLET PO SCH ×2 (09:20→21:52)
[2021-10-09] MEDS: OLOPATADINE 0.1% OPH SOLN 5 ML BOTTLE BOTH EYES SCH ×2 (09:25→21:58)
[2021-10-09] MEDS: IPRATROPIUM 0.06% NASAL SPRAY 15 ML BOTTLE BOTH NARES SCH (09:25)
[2021-10-09] MEDS: GABAPENTIN 100 MG CAPSULE PO SCH ×2 (16:05→21:53)
[2021-10-09] MEDS: DONEPEZIL 10 MG TABLET PO SCH (21:52)
[2021-10-09] MEDS: ROSUVASTATIN 20 MG TABLET PO SCH (21:53)
[2021-10-10] MEDS: LEVOTHYROXINE 75 MCG TABLET PO SCH (03:20)
[2021-10-10 05:46] LABS: Basophils % 0.2 % (0.0-0.8); Eosinophils # 0.2 10*3/uL (0.0-0.87); Eosinophils % 1.3 % (0.00-10.9); Hematocrit 27.7 VOL% (35.7-47.0); Hemoglobin 8.7 GM/DL (12.0-16.0); Immature Granulocytes % 0.8 %; Lymphocytes # 0.9 10*3/uL (1.4-4.0); Lymphocytes % 7.2 % (21.3-54.2); Mean Corpuscular HGB Conc 31.4 GM/DL (32-36); Mean Corpuscular Volume 96.2 FL (87-102); Mean Platelet Volume 11.7 FL (9.6-12.0); Monocytes # 1.4 10*3/uL (0.11-0.8); Monocytes % 10.7 % (1.7-12.7); Neutrophils % 79.8 % (38.7-73.9); Platelet Count 159 T/CUMM (130-400); Red Blood Count 2.88 MC/CUMM (3.8-5.5); White Blood Count 12.7 T/CUMM (4-12)
[2021-10-10 06:12] LABS: Calcium 8.5 MG/DL (8.5-10.1); Potassium 4.5 MMOL/L (3.5-5.1)
[2021-10-10] MEDS: ASPIRIN CHEW 81 MG TABLET PO SCH (09:05)
[2021-10-10] MEDS: MULTIVITAMIN (CENTRUM) TABLET PO SCH (09:05)
[2021-10-10] MEDS: LORATADINE 10 MG TABLET PO SCH (09:06)
[2021-10-10] MEDS: APIXABAN 2.5 MG TABLET PO SCH ×2 (09:06→21:05)
[2021-10-10] MEDS: CALCIUM (CARBONATE)/VITAMIN D 600 MG-400 UNIT TABLET PO SCH (09:06)
[2021-10-10] MEDS: ASCORBIC ACID 500 MG TABLET PO SCH ×2 (09:06→21:05)
[2021-10-10] MEDS: SERTRALINE 50 MG TABLET PO SCH (09:06)
[2021-10-10] MEDS: METOPROLOL SUCCINATE XL 25 MG TABLET PO SCH (09:07)
[2021-10-10] MEDS: IPRATROPIUM 0.06% NASAL SPRAY 15 ML BOTTLE BOTH NARES SCH (09:07)
[2021-10-10] MEDS: OLOPATADINE 0.1% OPH SOLN 5 ML BOTTLE BOTH EYES SCH ×2 (09:07→21:10)
[2021-10-10] MEDS: PANTOPRAZOLE 40 MG TABLET PO SCH (09:07)
[2021-10-10] MEDS: DOCUSATE SODIUM 100 MG CAPSULE PO SCH ×2 (09:07→21:04)
[2021-10-10] MEDS: FERROUS SULFATE 325 MG TABLET PO SCH ×2 (09:07→17:03)
[2021-10-10] MEDS: GABAPENTIN 100 MG CAPSULE PO SCH ×2 (17:03→21:04)
[2021-10-10] MEDS: DONEPEZIL 10 MG TABLET PO SCH (21:05)
[2021-10-10] MEDS: ROSUVASTATIN 20 MG TABLET PO SCH (21:05)
[2021-10-11 05:08] LABS: Basophils % 0.3 % (0.0-0.8); Eosinophils # 0.2 10*3/uL (0.0-0.87); Eosinophils % 1.8 % (0.00-10.9); Hematocrit 26.3 VOL% (35.7-47.0); Hemoglobin 8.1 GM/DL (12.0-16.0); Immature Granulocytes % 0.8 %; Immature Granulocytes Absolute 0.09 #; Lymphocytes # 1.4 10*3/uL (1.4-4.0); Lymphocytes % 12.2 % (21.3-54.2); Mean Corpuscular HGB Conc 30.8 GM/DL (32-36); Mean Corpuscular Volume 96.7 FL (87-102); Mean Platelet Volume 11.7 FL (9.6-12.0); Monocytes # 1.3 10*3/uL (0.11-0.8); Neutrophils % 73.9 % (38.7-73.9); Platelet Count 165 T/CUMM (130-400); Red Blood Count 2.72 MC/CUMM (3.8-5.5); Red Cell Distribution Width 12.9 % (9.3-17.3); White Blood Count 11.9 T/CUMM (4-12)
[2021-10-11 05:31] LABS: Calcium 8.9 MG/DL (8.5-10.1); Osmolality,Calculated 300.8 MOS/KG (273-304); Potassium 4.4 MMOL/L (3.5-5.1)
[2021-10-11] MEDS: LEVOTHYROXINE 75 MCG TABLET PO SCH ×2 (05:54→06:58)
[2021-10-11] MEDS: APIXABAN 2.5 MG TABLET PO SCH (08:24)
[2021-10-11] MEDS: ASCORBIC ACID 500 MG TABLET PO SCH (08:24)
[2021-10-11] MEDS: LORATADINE 10 MG TABLET PO SCH (08:24)
[2021-10-11] MEDS: DOCUSATE SODIUM 100 MG CAPSULE PO SCH (08:24)
[2021-10-11] MEDS: ASPIRIN CHEW 81 MG TABLET PO SCH (08:24)
[2021-10-11] MEDS: METOPROLOL SUCCINATE XL 25 MG TABLET PO SCH (08:24)
[2021-10-11] MEDS: SERTRALINE 50 MG TABLET PO SCH (08:24)
[2021-10-11] MEDS: MULTIVITAMIN (CENTRUM) TABLET PO SCH (08:24)
[2021-10-11] MEDS: CALCIUM (CARBONATE)/VITAMIN D 600 MG-400 UNIT TABLET PO SCH (08:24)
[2021-10-11] MEDS: PANTOPRAZOLE 40 MG TABLET PO SCH (08:24)
[2021-10-11] MEDS: FERROUS SULFATE 325 MG TABLET PO SCH (08:25)
[2021-10-11] MEDS: IPRATROPIUM 0.06% NASAL SPRAY 15 ML BOTTLE BOTH NARES SCH (08:28)
[2021-10-11] MEDS: OLOPATADINE 0.1% OPH SOLN 5 ML BOTTLE BOTH EYES SCH (08:29)
[2021-10-11 11:41] VITALS: BP 80/44
== END 2021-10-11 12:00 | DRG 522 ==
LOC: EDUNIT# → EDBD → N.ED 04:00 → N.3E 05:24
PROVIDERS: ADMIT Internal Medicine Geriatric Medicine; ATTEND Internal Medicine Geriatric Medicine